=== PATIENT | male | born 2000 | race Caucasian/White ===

== ENCOUNTER 2022-10-31 09:20 | Outpatient (AMB) | payer BC, SELFPAY ==
[2022-10-31 09:25] VITALS: BP 126/78; PULSE 97; RESP 20; TEMP 37.1; O2SAT 99; BMI 24.9
--- NOTE | 2022-10-31 09:25 | MHC.PC.OV ---
Vital Signs 10/31/22 09:25 Height 5 ft 7 in Weight 159 lb BMI 24.9 BP 126/78 Blood Pressure Location Lt brachial Position Sitting Respiration 20 Pulse 97 Pulse Source Pulse Oximeter Temp 98.7 F Temp Source Oral Pulse Oximetry (%) 99 Oxygen Delivery Method Room Air Intake Visit Reasons: New patient-requesting physical Intake Note: Patient is here as a new patient, would like to discuss fatigue. Allergies hazelnuts, dogs, cats Allergy (Mild, Uncoded 10/31/22 10:07) watery eyes, sneezing Medication List - Last Reconciled 10/31/22 by Patricia Cohen CNP albuterol sulfate 90 mcg/actuation 2 puffs inhalation Q6H PRN budesonide 90 mcg/actuation (Pulmicort Flexhaler) 2 inhalations inhalation BID Dental Screening Did you have a dental visit in the last 12 months?: No Did you have a dental problem in the last 6 months where you did not have access to dental care?: No Was dental information given to patient?: No HPI HPI Comments History of Present Illness Details 22-year-old male presents to [facility] He notes that the last time was seen by his former PCP was 2 years ago. He had routine blood work done a year and half ago He reports past medical history significant for asthma, anxiety and depression. He notes he was followed by therapist for 3 months until he moved from [place] to [place]. He has never been on psychotropic medications. He notes that his asthma is well controlled. He has a positive response to Thoughts that he would better off , all hurting yourself in some way on the PHQ-9 questionnaire. He admits to constant suicide ideation. He notes that sometimes while driving, I look for spots in the [place] where i can crash my car. He states the last time he had those thoughts was 2 weeks ago. He currently denies SI/HI. He is willing to be reconnected with a therapist and start medication treatment. He also reports chronic persistent fatigue for the past 6 years. He admits to exercising. [facility] Medical History (Updated 10/31/22 @ 13:27 by Patricia Cohen CNP) Asthma Broken arm High blood pressure Right arm fracture Family History (Updated 10/31/22 @ 09:35 by Sol Mcguire 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 1. Little interest or pleasure in doing things: more than half the days 2. Feeling down, depressed, or hopeless: more than half the days 3. Trouble falling or staying asleep, or sleeping too much: more than half the days 4. Feeling tired or having little energy: more than half the days 5. Poor appetite or overeating: several days 6. Feeling bad about yourself - or that you are a failure or have let yourself or your family down: nearly every day 7. Trouble concentrating on things, such as reading the newspaper or watching television: several days 8. Moving or speaking so slowly that other people could have noticed. Or the opposite - being so fidgety or restless that you have been moving around a lot more than usual: not at all 9. Thoughts that you would be better off or of hurting yourself in some way: more than half the days Total score: 15 Depression Screening Interpretation: Positive Depression Screening Follow-up: Existing condition, New Medication prescribed and Community Mental Health Worker F/U Source: Developed by Drs. Misael Clark, Radha Maher, Avery Sawant and colleagues, with an educational gloria from [employer]. Thrive Questionnaire I am a: Patient What is your living situation today?: I have a steady place to live Within the past 12 months, did the food you bought not last and you didn't have the money to get more?: Never true Within the past 12 months, did you worry whether your food would run out before you got money to buy more?: Never true Do you have trouble paying for medicines?: No Do you have trouble getting transportation to medical appointments?: No Do you have trouble paying your heating and electricity bill?: No Do you have trouble taking care of your child, family member or friend?: No Do you have trouble with day-to-day activities such as bathing, preparing meals, shopping, managing finances, etc.?: No Are you currently unemployed and looking for a job?: No Are you interested in more education?: No AUDIT C Alcohol Use Questionnaire (AUDIT-C) 1. How often do you have a drink containing alcohol?: Monthly or less 2. How many drinks containing alcohol do you have on a typical day when you are drinking?: 1 or 2 3. How often do you have six or more drinks on one occasion?: Never Total Score: 1 ANNETTA-7 AMB Questionnaire ANNETTA-7 Feeling nervous, anxious, or on edge: 2 = More than half the days Not being able to stop or control worryin = Several days Worrying too much about different things: 3 = Nearly every day Source: Developed by Drs. Misael Clark, Radha Maher, Avery Sawant and colleagues, with an educational gloria from [employer]. ACT Questionnaire In the past 4 weeks, how much of the time did your asthma keep you from getting as much done at work, school or at home?: A little of the time During the past 4 weeks, how often have you had shortness of breath?: Not at all During the past 4 weeks, how often did your asthma symptoms wake you up at night or earlier than usual in the morning?: Not at all During the past 4 weeks, how often have you had to use your rescue inhaler or nebulizer medication?: Once a week or less How would you rate your asthma control during the past 4 weeks?: Well controlled Score: 22 Review of Systems Const Details: Const Denies chills, Denies fatigue, Denies fever(s), Denies headache(s) and Denies weakness ENT Denies dizziness and Denies headache(s) Card Denies chest pain, Denies lightheadedness, Denies dyspnea and Denies other (Palpitations) Resp Denies cough, Denies dyspnea, Denies wheezing and Denies other ( shortness of breath) GI Denies abdominal pain, Denies melena, Denies hematochezia, Denies change in bowel habits, Denies dyspepsia and Denies nausea Denies hematuria and Denies dysuria Musc Denies abnormal gait, Denies myalgias, Denies arthralgias, Denies numbness and Denies tingling Skin/Breast Denies rash, Denies unusual bruising and Denies wounds Neuro Denies abnormal gait, Denies dizziness, Denies headache(s), Denies memory loss, Denies numbness, Denies Sensory deficit (Neuro), Denies tingling and Denies weakness Psych Reports anxiety and Reports depression Endo Denies cold intolerance, Reports fatigue, Denies heat intolerance, Denies polydipsia and Denies polyuria Aller/Immun Denies wheezing Physical exam (Primary Care) BMI result Body Mass Index 24.9 Tobacco/Smoking Status: Tobacco use Status Patient Tobacco Use Status Never used Tobacco 10/31/22 10:18 e-Cigarette/Vaping Use Never Used 10/31/22 10:18 PHQ-9: PHQ-9 Score PHQ-9: Total score 15 10/31/22 10:37 Depression Screening Interpretation: Positive Depression Screening Follow-up: Existing condition, New Medication prescribed and Community Mental Health Worker F/U Const Other: Const General: well developed; No acute distress Nutritional Appearance: well nourished Orientation/consciousness: patient oriented x3 HEENT Head: Yes normocephalic and Yes atraumatic Eyes General: appearance normal, both eyes and all related structures Pupils: Equal, round and reactive pupils present EOM: EOMs intact bilaterally Resp Effort & Inspection: normal respiratory effort Auscultation: clear to auscultation bilaterally Cardio Rate: regular rate Rhythm: regular rhythm Heart sounds: S1 normal heart sound present, S2 normal heart sound present, no gallops, no murmurs and no rubs Bruits: no abdominal aortic bruits and no carotid bruits Neuro General: patient oriented x3 and gait normal, no focal neuro deficit Cranial nerves: Yes Equal, round and reactive pupils present Psych Appearance: grossly normal Affect: normal affect Attitude: cooperative Thought process: Normal thought process present Assessment and Plan Assessment & Plan (1) Anxiety and depression: Code(s): F41.9 - Anxiety disorder, unspecified; F32.A - Depression, unspecified Plan: He has a positive response to Thoughts that he would better off , all hurting yourself in some way on the PHQ-9 questionnaire. He admits to constant suicide ideation. He notes that sometimes while driving, I look for spots in the [place] where i can crash my car. He states the last time he had those thoughts was 2 weeks ago. He currently denies SI/HI. He is willing to be reconnected with a therapist and start medication treatment. PHQ-9 and ANNETTA-7 scores revealed moderately severe depression and moderate anxiety respectively He met with the community navigator will involved crisis He was evaluated by crisis who cleared him to go home Sertraline ordered. Take as prescribed Routine exercise encouraged Follow-up in 2 weeks or return sooner with worsening or new symptoms Verbalized understanding and agreed with treatment plan. (2) Fatigue: Code(s): R53.83 - Other fatigue Plan: He also reports chronic persistent fatigue for the past 6 years Likely due to chronic depression, although possible anemia or thyroid disease. May also be vitamin deficiency Lab orders to rule out organic cause Will review lab results and make changes to care plan if warranted Routine exercise encouraged Follow-up with worsening or new symptoms Verbalized understanding and agreed with treatment plan. (3) Asthma: Code(s): J45.909 - Unspecified asthma, uncomplicated Plan: Reports history of asthma Symptoms are well controlled; ACT score is 22 which indicates well controlled asthma Pulmicort and albuterol inhalers as prescribed Follow-up with symptoms or concerns Verbalized understanding and agreed with treatment plan. (4) Laboratory tests ordered as part of a complete physical exam (CPE): Code(s): Z00.00 - Encounter for general adult medical examination without abnormal findings Plan: Fasting labs ordered as part of a complete physical exam. Advised to fast for at least 10 hours before getting labs drawn. May drink water Verbalized understanding and agreed with treatment plan. Orders: Orders Comprehensive [place]. Panel Fast Today F32.A - Depression, unspecified, F41.9 - Anxiety disorder, unspecified, R53.83 - Other fatigue, Z00.00 - Encounter for general adult medical examination without abnormal findings Lipid Panel Today F32.A - Depression, unspecified, F41.9 - Anxiety disorder, unspecified, R53.83 - Other fatigue, Z00.00 - Encounter for general adult medical examination without abnormal findings Complete Blood Count Auto Diff Today F32.A - Depression, unspecified, F41.9 - Anxiety disorder, unspecified, R53.83 - Other fatigue, Z00.00 - Encounter for general adult medical examination without abnormal findings TSH reflex Free T4 Today F32.A - Depression, unspecified, F41.9 - Anxiety disorder, unspecified, R53.83 - Other fatigue, Z00.00 - Encounter for general adult medical examination without abnormal findings Vitamin D 25-OH Total Today F32.A - Depression, unspecified, F41.9 - Anxiety disorder, unspecified, R53.83 - Other fatigue, Z00.00 - Encounter for general adult medical examination without abnormal findings UA CC w/rflx Micro + Cult Today F32.A - Depression, unspecified, F41.9 - Anxiety disorder, unspecified, R53.83 - Other fatigue, Z00.00 - Encounter for general adult medical examination without abnormal findings Medications: New sertraline 50 mg PO DAILY 30 days 30 tabs 3RF Coding Level of Care Code New Pt Level 3 (59239) Diagnoses Anxiety and depression F41.9; F32.A Fatigue R53.83 Asthma J45.909 Laboratory tests ordered as part of a complete physical exam (CPE) Z00.00 Time Spent (min) 40
== END 2022-10-31 13:14 | disposition home or self-care (01) ==
LOC: HO.HMGFM 09:21
PROVIDERS: PCP Nurse Practitioner Family; Visit Provider Nurse Practitioner Family
DX: F41.9 Anxiety disorder, unspecified (principal); F32.A Depression, unspecified; R53.83 Other fatigue; J45.909 Unspecified asthma, uncomplicated; Z00.00 Encounter for general adult medical examination without abnormal findings
CPT/HCPCS: 99203

== ENCOUNTER 2022-11-15 08:42 | Outpatient (AMB) | payer BC, SELFPAY ==
[2022-11-15 08:52] VITALS: BP 130/84; PULSE 81; RESP 12; TEMP 36.7; O2SAT 99; BMI 26.8
--- NOTE | 2022-11-15 08:52 | MHC.PC.OV ---
Vital Signs 11/15/22 08:52 Height 5 ft 7 in Weight 171 lb 6 oz BMI 26.8 BP 130/84 Blood Pressure Location Rt brachial Position Sitting Respiration 12 Pulse 81 Pulse Source Pulse Oximeter Temp 98.1 F Temp Source Temporal Artery Scan Pulse Oximetry (%) 99 Oxygen Delivery Method Room Air Intake Visit Reasons: 2 wks anxiety, depression Intake Note: Patient will get labs done after this visit. Will be calling pharmacy to see of they receivced the script sent over on 10/31/22 for Sertraline 50 MG. [employer] Required: No Accompanied by: Self / Same As Patient Allergies hazelnuts, dogs, cats Allergy (Mild, Uncoded 11/15/22 09:03) Sneezing Medication List - Last Reconciled 11/15/22 by Patricia Cohen CNP albuterol sulfate 90 mcg/actuation 2 puffs inhalation Q6H PRN budesonide 90 mcg/actuation (Pulmicort Flexhaler) 2 inhalations inhalation BID sertraline 50 mg PO DAILY 30 days Tobacco use date assessed: 11/15/22 Dental Screening Dental Screen Date: 11/15/22 Did you have a dental visit in the last 12 months?: No Did you have a dental problem in the last 6 months where you did not have access to dental care?: Yes Was dental information given to patient?: Patient has dentist HPI HPI Comments History of Present Illness Details 22-year-old male presents for anxiety and depression follow-up. He establish care 2 weeks ago. He had a positive response to the PHQ-9 question regarding thoughts that you would be better off or of hurting yourself in some way on the PHQ-9 screening. He was cleared by crisis. He was prescribed sertraline 50 mg daily and provided resources by the community navigation to connect to a therapist. He notes that his symptoms have not improved; they are about the same as last time. He has a positive response to Thoughts? that you would be better?off or of hurting yourself in some way on the PHQ-9 questionnaire. He admits to constant suicide ideation.? He notes that sometimes while driving, I look for spots in the [place] where i can crash my car. He states the last time he had those thoughts was 2 weeks ago.? He currently denies SI/HI, denies plans of committing suicide, and contracts for safety. He notes that he contacted the resources that was offered to him to connect to a therapist and was told there were no openings for new patients. 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 1. Little interest or pleasure in doing things: more than half the days 2. Feeling down, depressed, or hopeless: nearly every day 3. Trouble falling or staying asleep, or sleeping too much: several days 4. Feeling tired or having little energy: nearly every day 5. Poor appetite or overeating: more than half the days 6. Feeling bad about yourself - or that you are a failure or have let yourself or your family down: nearly every day 7. Trouble concentrating on things, such as reading the newspaper or watching television: not at all 8. Moving or speaking so slowly that other people could have noticed. Or the opposite - being so fidgety or restless that you have been moving around a lot more than usual: not at all 9. Thoughts that you would be better off or of hurting yourself in some way: more than half the days Total score: 16 Depression Screening Interpretation: Positive Depression Screening Follow-up: Existing condition, In treatment and Community Mental Health Worker F/U Source: Developed by Drs. Miseal Clark, Radha Maher, Avery Sawant and colleagues, with an educational gloria from [employer]. ANNETTA-7 AMB Questionnaire ANNETTA-7 Date ANNETTA - 7 assessed: 11/15/22 Feeling nervous, anxious, or on edge: 2 = More than half the days Not being able to stop or control worryin = Several days Worrying too much about different things: 1 = Several days Trouble relaxin = More than half the days Being so restless that it is hard to sit still: 0 = Not at all Becoming easily annoyed or irritable: 2 = More than half the days Feeling afraid as if something awful might happen: 1 = Several days Total ANNETTA-7 score (0-4 normal; 5-9 mild; 10-14 moderate; 15-21 severe): 9 Source: Developed by Drs. Misael Clark, Radha Maher, Avery Sawant and colleagues, with an educational gloria from [employer]. Review of Systems Const Details: Const Denies chills, Denies fatigue, Denies fever(s), Denies headache(s) and Denies weakness ENT Denies dizziness and Denies headache(s) Card Denies chest pain, Denies lightheadedness, Denies dyspnea and Denies other (Palpitations) Resp Denies cough, Denies dyspnea, Denies wheezing and Denies other ( shortness of breath) GI Denies abdominal pain, Denies melena, Denies hematochezia, Denies change in bowel habits, Denies dyspepsia and Denies nausea Denies hematuria and Denies dysuria Musc Denies abnormal gait, Denies myalgias, Denies arthralgias, Denies numbness and Denies tingling Skin/Breast Denies rash, Denies unusual bruising and Denies wounds Neuro Denies abnormal gait, Denies dizziness, Denies headache(s), Denies memory loss, Denies numbness, Denies Sensory deficit (Neuro), Denies tingling and Denies weakness Psych Reports anxiety and Reports depression, Denies memory loss Endo Denies fatigue Aller/Immun Denies wheezing Physical exam (Primary Care) Vital Signs: Last Vital Signs Temp 98.1 F 11/15/22 08:52 Pulse 81 11/15/22 08:52 Resp 12 11/15/22 08:52 BP 130/84 11/15/22 08:52 Pulse Ox 99 11/15/22 08:52 Oxygen Delivery Method Room Air 11/15/22 08:52 BMI result Body Mass Index 26.8 Tobacco/Smoking Status: Tobacco use Status Tobacco use date assessed 11/15/22 11/15/22 09:03 Patient Tobacco Use Status Never used Tobacco 11/15/22 08:57 e-Cigarette/Vaping Use Never Used 11/15/22 08:57 PHQ-9: PHQ-9 Score PHQ-9: Total score 16 11/15/22 09:07 Depression Screening Interpretation: Positive Depression Screening Follow-up: Existing condition, In treatment and Community Mental Health Worker F/U Const Other: General: no acute distress and well developed Nutritional Appearance: well nourished Orientation/consciousness: patient oriented x3 HENMT Head: Yes normocephalic and Yes atraumatic Eyes General: appearance normal, both eyes and all related structures Pupils: Equal, round and reactive pupils present EOM: EOMs intact bilaterally Resp Effort & Inspection: normal respiratory effort Auscultation: clear to auscultation bilaterally Cardio Rate: regular rate Rhythm: regular rhythm Heart sounds: S1 normal heart sound present, S2 normal heart sound present, no gallops, no murmurs and no rubs GI Palpation (GI): No Abdominal aortic bruit present, Soft to palpation, nontender, No hepatosplenomegaly present and No Rebound tenderness present Auscultation: normal bowel sounds General: Yes no CVA tenderness Back/Spine/Pelvis Back: no CVA tenderness Cervical Spine: cervical ROM normal and No Cervical spine tenderness Thoracic/Lumbar Spine: thoraco-lumbar ROM normal, No pain with thoraco-lumbar ROM, No thoracic spinal tenderness and No lumbar spinal tenderness Extrem General: Yes normal to inspection, No edema and No calf tenderness Skin General: warm and dry. Normal skin color. Normal skin turgor Lesions: no lesions Rashes: no rashes Trauma: no lacerations or abrasions Wounds: no wounds Nails: normal Neuro General: patient oriented x3, gait normal and no focal neuro deficit Cranial nerves: Yes Equal, round and reactive pupils present Cognition (Neuro): normal cognition Gait exam (Neuro): Normal gait present Sensory Exam: No Sensory deficit (Neuro) Psych Appearance: grossly normal Affect: normal affect Attitude: cooperative Thought process: Normal thought process present Assessment and Plan Assessment & Plan (1) Anxiety and depression: Code(s): F41.9 - Anxiety disorder, unspecified; F32.A - Depression, unspecified Plan: PHQ-9 and ANNETTA-7 scores revealed moderately severe depression and mild anxiety respectively Encouraged to sisal picker sertraline from the pharmacy intake as prescribed Routine exercise encouraged He met with the community navigator who will try to facilitate connecting to a therapist Follow-up in 2 weeks or return sooner with new or worsening symptoms Verbalized understanding and agreed with treatment plan. Coding Level of Care Code Est Pt Level 3 (40718) Diagnoses Anxiety and depression F41.9; F32.A Time Spent (min) 25
== END 2022-11-15 09:28 | disposition home or self-care (01) ==
PROVIDERS: PCP Nurse Practitioner Family; Visit Provider Nurse Practitioner Family
DX: F41.9 Anxiety disorder, unspecified (principal); F32.A Depression, unspecified
CPT/HCPCS: 99213

== ENCOUNTER 2022-11-15 09:29 | Outpatient (REF) | payer BC, SELFPAY ==
[2022-11-15 11:44] LABS: Appearance Urine Clear; Color Urine Straw; Glucose Urine UA Negative (Negative); Leukocyte Esterase Urine Negative (Negative); Nitrite Urine Negative (Negative); Specific Gravity - Urine 1.025 (1.005-1.025); Urine Blood Negative (Negative); Urine Ketones Negative (Negative); Urine Protein Negative (Neg-Trace)
[2022-11-15 11:50] LABS: MANUAL DIFF FLAG NO
[2022-11-15 11:59] LABS: Basophils Absolute Auto 0.1 X10*3/uL (0.0-0.2); Basophils Percent Auto 1.1 % (0-2); Eosinophils Absolute Auto 0.2 X10*3/uL (0.0-0.4); Eosinophils Percent Auto 3.3 % (0-4); Hematocrit 45.5 % (42.0-52.0); Hemoglobin 15.5 g/dl (14.0-18.0); Imm Gran Abs Auto 0.02 X10*3/uL (0.00-0.03); Imm Gran Pct Auto 0.4 % (0.0-0.4); Lymphocytes Absolute Auto 2.1 X10*3/uL (1.2-4.9); Lymphocytes Percent Auto 38.9 % (20-40); Mean Corpuscular HGB Conc 34.1 g/dl (31.0-36.0); Mean Corpuscular Hemoglobin 30.6 pg (27.0-33.0); Mean Corpuscular Volume 89.9 fL (80.0-98.0); Mean Platelet Volume 10.5 fL (9.4-12.4); Monocytes Absolute Auto 0.3 X10*3/uL (0.1-1.2); Monocytes Percent Auto 5.8 % (2-11); Neutrophils Absolute Auto 2.8 x10*3/uL (2.0-8.3); Neutrophils Percent Auto 50.5 % (45-73); Platelet Count 237 X10*3/uL (160-400); Red Blood Count 5.06 X10*6/uL (4.60-5.80); White Blood Count 5.5 X10*3/uL (4.8-10.8)
[2022-11-15 13:24] LABS: Alanine Aminotransferase 20 U/L (0-40); Albumin Level 4.5 g/dL (3.5-5.0); Alkaline Phosphatase 62 U/L (39-117); Anion Gap 10 (12-20); Aspartate Amino Transferase 18 U/L (5-37); Bilirubin Total 0.4 mg/dL (0.0-1.0); Blood Urea Nitrogen 13 mg/dL (9-16); Calcium 9.6 mg/dL (8.4-10.2); Carbon Dioxide 27 mmol/L (22-29); Chloride 105 mmol/L (96-108); Cholesterol 175 mg/dL; Estimated Glomerular Filt Rate > 60; Glucose Fasting 89 mg/dL (60-99); HDL Cholesterol 46 mg/dL; LDL Cholesterol Calculated 118 mg/dl; Potassium 3.8 mmol/L (3.3-5.1); Sodium 138 mmol/L (135-145); TSH reflex Free T4 1.57 uIU/mL (0.32-4.0); Total Protein 7.6 g/dL (6.5-8.0); Triglycerides 55 mg/dL; Vitamin D 25-OH Total 29.2 ng/mL (>30)
== END 2022-11-15 09:30 | disposition home or self-care (01) ==
LOC: HO.WFDLDS 09:29
PROVIDERS: Visit Provider Nurse Practitioner Family
DX: Z00.00 Encounter for general adult medical examination without abnormal findings (principal); F32.A Depression, unspecified; F41.9 Anxiety disorder, unspecified; R53.82 Chronic fatigue, unspecified
CPT/HCPCS: 36415; 80053; 80061; 81003; 82306; 84443; 85025

== ENCOUNTER 2023-01-27 12:03 | Outpatient (AMB) | payer BC, SELFPAY ==
[2023-01-27 12:25] VITALS: BP 122/80; PULSE 85; RESP 16; TEMP 37.3; O2SAT 98; BMI 26.8
--- NOTE | 2023-01-27 12:25 | MHC.PC.OV ---
Vital Signs 01/27/23 12:25 Height 5 ft 7 in Weight 171 lb BMI 26.8 BP 122/80 Blood Pressure Location Lt brachial Position Sitting Respiration 16 Pulse 85 Pulse Source Pulse Oximeter Temp 99.1 F Temp Source Oral Pulse Oximetry (%) 98 Intake Visit Reasons: 2 wks anxiety, depression Intake Note: Patient is following up on his 2 weeks anxiety, and depression. Allergies hazelnuts, dogs, cats Allergy (Mild, Uncoded 01/27/23 12:33) Sneezing Medication List - Last Reconciled 01/27/23 by Patricia Cohen CNP albuterol sulfate 90 mcg/actuation 2 puffs inhalation Q6H PRN budesonide 90 mcg/actuation (Pulmicort Flexhaler) 2 inhalations inhalation BID sertraline 50 mg PO DAILY 30 days Tobacco use date assessed: 01/27/23 HPI HPI Comments History of Present Illness Details 22-year-old male presents for anxiety and depression follow-up He was last evaluated in the office on 11/15/2022. He reported worsening anxiety and depression symptoms. Sertraline was prescribed, He states he took sertraline as prescribed until 3 weeks ago when he had no refills left. States his anxiety and depressed her symptoms were significantly improved on the medication. He did not have thoughts that he would be better off or hurting himself in some way. He states that he was unable to follow-up as recommended during his last visit because he was not granted time off work. He came in today during his lunch break. He states that he has been exercising by running with his dog every day. He has a positive response to the PHQ-9 question regarding Thoughts that you would be better off or of hurting yourself in some way. He has had numerous positive response to this question on previous visits. He denies suicide or homicidal ideation. He denies plans of committing suicide. He contracts for safety. ? 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 1. Little interest or pleasure in doing things: more than half the days 2. Feeling down, depressed, or hopeless: nearly every day 3. Trouble falling or staying asleep, or sleeping too much: several days 4. Feeling tired or having little energy: nearly every day 5. Poor appetite or overeating: more than half the days 6. Feeling bad about yourself - or that you are a failure or have let yourself or your family down: nearly every day 7. Trouble concentrating on things, such as reading the newspaper or watching television: not at all 8. Moving or speaking so slowly that other people could have noticed. Or the opposite - being so fidgety or restless that you have been moving around a lot more than usual: not at all 9. Thoughts that you would be better off or of hurting yourself in some way: several days Total score: 15 Depression Screening Interpretation: Positive Depression Screening Follow-up: Existing condition and In treatment Depression Screening Done: Yes Source: Developed by Drs. Misael Clark, Radha Maher, Avery Sawant and colleagues, with an educational gloria from [employer]. ANNETTA-7 AMB Questionnaire ANNETTA-7 Date ANNETTA - 7 assessed: 01/27/23 Feeling nervous, anxious, or on edge: 1 = Several days Not being able to stop or control worryin = More than half the days Worrying too much about different things: 2 = More than half the days Trouble relaxin = Several days Being so restless that it is hard to sit still: 1 = Several days Becoming easily annoyed or irritable: 2 = More than half the days Feeling afraid as if something awful might happen: 0 = Not at all Total ANNETTA-7 score (0-4 normal; 5-9 mild; 10-14 moderate; 15-21 severe): 9 Source: Developed by Drs. Misael Clark, Radha Maher, Avery Sawant and colleagues, with an educational gloria from [employer]. Review of Systems Const Details: Const Denies chills, Denies fatigue, Denies fever(s), Denies headache(s) and Denies weakness ENT Denies dizziness and Denies headache(s) Card Denies chest pain, Denies lightheadedness, Denies dyspnea and Denies other (Palpitations) Resp Denies cough, Denies dyspnea, Denies wheezing and Denies other ( shortness of breath) GI Denies abdominal pain, Denies melena, Denies hematochezia, Denies change in bowel habits, Denies dyspepsia and Denies nausea Denies hematuria and Denies dysuria Musc Denies abnormal gait, Denies myalgias, Denies arthralgias, Denies numbness and Denies tingling Skin/Breast Denies rash, Denies unusual bruising and Denies wounds Neuro Denies abnormal gait, Denies dizziness, Denies headache(s), Denies memory loss, Denies numbness, Denies Sensory deficit (Neuro), Denies tingling and Denies weakness Psych Reports anxiety, Reports depression, Denies memory loss Endo Denies cold intolerance, Denies fatigue, Denies heat intolerance, Denies polydipsia and Denies polyuria Aller/Immun Denies wheezing Physical exam (Primary Care) BMI result Body Mass Index 26.8 Tobacco/Smoking Status: Tobacco use Status Tobacco use date assessed 01/27/23 01/27/23 12:27 Patient Tobacco Use Status Never used Tobacco 01/27/23 12:27 e-Cigarette/Vaping Use Never Used 01/27/23 12:27 Depression Screening Interpretation: Positive Depression Screening Follow-up: Existing condition and In treatment Const Other: General: no acute distress and well developed Nutritional Appearance: well nourished Orientation/consciousness: patient oriented x3 HENMT Head: Yes normocephalic and Yes atraumatic Eyes General: appearance normal, both eyes and all related structures Pupils: Equal, round and reactive pupils present EOM: EOMs intact bilaterally Resp Effort & Inspection: normal respiratory effort Auscultation: clear to auscultation bilaterally Cardio Rate: regular rate Rhythm: regular rhythm Heart sounds: S1 normal heart sound present, S2 normal heart sound present, no gallops, no murmurs and no rubs GI Palpation (GI): No Abdominal aortic bruit present, Soft to palpation, nontender, No hepatosplenomegaly present and No Rebound tenderness present Auscultation: normal bowel sounds General: Yes no CVA tenderness Back/Spine/Pelvis Back: no CVA tenderness Cervical Spine: cervical ROM normal and No Cervical spine tenderness Thoracic/Lumbar Spine: thoraco-lumbar ROM normal, No pain with thoraco-lumbar ROM, No thoracic spinal tenderness and No lumbar spinal tenderness Extrem General: Yes normal to inspection, No edema and No calf tenderness Skin General: warm and dry. Normal skin color. Normal skin turgor Lesions: no lesions Rashes: no rashes Trauma: no lacerations or abrasions Wounds: no wounds Nails: normal Neuro General: patient oriented x3, gait normal and no focal neuro deficit Cranial nerves: Yes Equal, round and reactive pupils present Cognition (Neuro): normal cognition Gait exam (Neuro): Normal gait present Sensory Exam: No Sensory deficit (Neuro) Psych Appearance: grossly normal Affect: normal affect Attitude: cooperative Thought process: Normal thought process present Assessment and Plan Assessment & Plan (1) Anxiety and depression: Code(s): F41.9 - Anxiety disorder, unspecified; F32.A - Depression, unspecified Plan: PHQ-9 and ANNETTA-7 scores revealed moderately severe depression and mild anxiety respectively Patient informed that he had active refill on sertraline Sertraline refilled. Advised to take as prescribed Routine exercise encouraged Follow-up in 1 month. May schedule appointment during his work break Return sooner with worsening or new symptoms Verbalized understanding and agreed with treatment plan. Medications: Refilled sertraline 50 mg PO DAILY 30 tabs 3RF 30 days Coding Level of Care Code Est Pt Level 3 (65477) Diagnoses Anxiety and depression F41.9; F32.A
== END 2023-01-27 12:53 | disposition home or self-care (01) ==
PROVIDERS: PCP Nurse Practitioner Family; Visit Provider Nurse Practitioner Family
DX: F41.9 Anxiety disorder, unspecified (principal); F32.A Depression, unspecified
CPT/HCPCS: 99213

== ENCOUNTER 2023-10-02 17:20 | Outpatient (AMB) | payer BC, SELFPAY ==
--- NOTE | 2023-10-02 17:24 | A.OFFPC_ITS ---
Vital Signs 10/02/23 17:33 Height 5 ft 7 in Weight 194 lb 2 oz BMI 30.4 BP 128/68 Blood Pressure Location Rt brachial Position Sitting Respiration 16 Pulse 88 Pulse Source Pulse Oximeter Temp 98.2 F Temp Source Oral Pulse Oximetry (%) 96 Oxygen Delivery Method Room Air Intake Visit Reasons: f/u meds Intake Note: Follow up Allergies hazelnuts, dogs, cats Allergy (Mild, Uncoded 10/02/23 17:35) Sneezing Medication List - Last Reconciled 10/02/23 by Patricia Cohen CNP albuterol sulfate 90 mcg/actuation 2 puffs inhalation Q6H PRN budesonide 90 mcg/actuation (Pulmicort Flexhaler) 2 inhalations inhalation BID sertraline 50 mg PO DAILY 30 days Tobacco use date assessed: 10/02/23 Dental Screening Dental Screen Date: 11/15/22 HPI HPI Comments History of Present Illness Details 23-year-old male presents for anxiety an d depression follow-up His last office visit was in January 2023. He was advised to follow-up in 1 month for anxiety and depression He admits to taking sertraline as prescribed without adverse reactions He reports control anxiety and depression symptoms on current treatment regimen He admits to routine physical exercise He offers no complaints and denies acute symptoms at this time [facility] Medical History Asthma Broken arm High blood pressure Right arm fracture Surgical History No pertinent past surgical history Family History Father High blood pressure Substance abuse Maternal Grandmother Mental health disorder Social History Housing: Apartment Patient Tobacco Use Status: Never used Tobacco e-Cigarette/Vaping Use: Never Used service: No Current occupational status: employed 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 1. Little interest or pleasure in doing things: several days 2. Feeling down, depressed, or hopeless: several days 3. Trouble falling or staying asleep, or sleeping too much: not at all 4. Feeling tired or having little energy: several days 5. Poor appetite or overeating: not at all 6. Feeling bad about yourself - or that you are a failure or have let yourself or your family down: not at all 7. Trouble concentrating on things, such as reading the newspaper or watching television: not at all 8. Moving or speaking so slowly that other people could have noticed. Or the opposite - being so fidgety or restless that you have been moving around a lot more than usual: not at all 9. Thoughts that you would be better off or of hurting yourself in some way: not at all Total score: 3 Depression Screening Interpretation: Negative Depression Screening Done: Yes 35506 - PHQ-9 Billing: Yes Source: Developed by Drs. Misael Clark, Radha Maher, Avery Sawant and colleagues, with an educational gloria from [employer]. ANNETTA-7 AMB Questionnaire ANNETTA-7 Date ANNETTA - 7 assessed: 10/02/23 Feeling nervous, anxious, or on edge: 1 = Several days Not being able to stop or control worryin = Not at all Worrying too much about different things: 0 = Not at all Trouble relaxin = Several days Being so restless that it is hard to sit still: 1 = Several days Becoming easily annoyed or irritable: 1 = Several days Feeling afraid as if something awful might happen: 0 = Not at all Total ANNETTA-7 score (0-4 normal; 5-9 mild; 10-14 moderate; 15-21 severe): 4 Source: Developed by Drs. Misael Clark, Radha Maher, Avery Sawant and colleagues, with an educational gloria from [employer]. ANNETTA-7 Assessment Billing ANNETTA-7 Assessment Tool: ANNETTA-7 Assessment 79087 ACT Questionnaire In the past 4 weeks, how much of the time did your asthma keep you from getting as much done at work, school or at home?: None of the time During the past 4 weeks, how often have you had shortness of breath?: Not at all During the past 4 weeks, how often did your asthma symptoms wake you up at night or earlier than usual in the morning?: Not at all During the past 4 weeks, how often have you had to use your rescue inhaler or nebulizer medication?: Not at all (Ran out of both inhaler) How would you rate your asthma control during the past 4 weeks?: Completely controlled ACT Interpretation: Negative Score: 25 Review of Systems Const Details: Const Denies chills, Denies fatigue, Denies fever(s), Denies headache(s) and Denies weakness ENT Denies dizziness and Denies headache(s) Card Denies chest pain, Denies lightheadedness, Denies dyspnea and Denies other (Palpitations) Resp Denies cough, Denies dyspnea, Denies wheezing and Denies other ( shortness of breath) GI Denies abdominal pain, Denies melena, Denies hematochezia, Denies change in bowel habits, Denies dyspepsia and Denies nausea Denies hematuria and Denies dysuria Musc Denies abnormal gait, Denies myalgias, Denies arthralgias, Denies numbness and Denies tingling Skin/Breast Denies rash, Denies unusual bruising and Denies wounds Neuro Denies abnormal gait, Denies dizziness, Denies headache(s), Denies memory loss, Denies numbness, Denies Sensory deficit (Neuro), Denies tingling and Denies weakness Psych Denies anxiety, Denies depression, Denies memory loss Endo Denies cold intolerance, Denies fatigue, Denies heat intolerance, Denies polydipsia and Denies polyuria Aller/Immun Denies wheezing Physical exam (Primary Care) Vital Signs: Last Vital Signs Temp 98.2 F 10/02/23 17:33 Pulse 88 10/02/23 17:33 Resp 16 10/02/23 17:33 BP 128/68 10/02/23 17:33 Pulse Ox 96 10/02/23 17:33 Oxygen Delivery Method Room Air 10/02/23 17:33 BMI result Body Mass Index 30.4 Tobacco/Smoking Status: Tobacco use Status Tobacco use date assessed 10/02/23 10/02/23 17:30 Patient Tobacco Use Status Never used Tobacco 10/02/23 17:25 e-Cigarette/Vaping Use Never Used 10/02/23 17:25 PHQ-9: PHQ-9 Score PHQ-9: Total score 3 10/02/23 17:30 Depression Screening Interpretation: Negative Const Other: General: no acute distress and well developed Nutritional Appearance: well nourished Orientation/consciousness: patient oriented x3 HENMT Head: Yes normocephalic and Yes atraumatic Eyes General: appearance normal, both eyes and all related structures Pupils: Equal, round and reactive pupils present EOM: EOMs intact bilaterally Resp Effort & Inspection: normal respiratory effort Auscultation: clear to auscultation bilaterally Cardio Rate: regular rate Rhythm: regular rhythm Heart sounds: S1 normal heart sound present, S2 normal heart sound present, no gallops, no murmurs and no rubs GI Palpation (GI): No Abdominal aortic bruit present, Soft to palpation, nontender, No hepatosplenomegaly present and No Rebound tenderness present Auscultation: normal bowel sounds General: Yes no CVA tenderness Back/Spine/Pelvis Back: no CVA tenderness Cervical Spine: cervical ROM normal and No Cervical spine tenderness Thoracic/Lumbar Spine: thoraco-lumbar ROM normal, No pain with thoraco-lumbar ROM, No thoracic spinal tenderness and No lumbar spinal tenderness Extrem General: Yes normal to inspection, No edema and No calf tenderness Skin General: warm and dry. Normal skin color. Normal skin turgor Neuro General: patient oriented x3, gait normal and no focal neuro deficit Cranial nerves: Yes Equal, round and reactive pupils present Cognition (Neuro): normal cognition Gait exam (Neuro): Normal gait present Sensory Exam: No Sensory deficit (Neuro) Psych Appearance: grossly normal Affect: normal affect Attitude: cooperative Thought process: Normal thought process present Assessment and Plan Assessment & Plan (1) Anxiety and depression: Code(s): F41.9 - Anxiety disorder, unspecified; F32.A - Depression, unspecified Plan: Reports controlled anxiety and depressive symptoms PHQ-9 and ANNETTA-7 scores are normal Continue to take sertraline as prescribed Routine exercise encouraged Follow-up in 1 month for an extended physical exam or sooner with symptoms or concerns Verbalized understanding and agreed with treatment plan (2) Laboratory tests ordered as part of a complete physical exam (CPE): Code(s): Z00.00 - Encounter for general adult medical examination without abnormal findings Plan: Fasting labs ordered in preparation of a complete physical exam. Advised to fast for at least 10 hours before getting labs drawn. May drink water Verbalized understanding and agreed with treatment plan. Orders: Orders TSH reflex Free T4 Today Z00.00 - Encounter for general adult medical examination without abnormal findings Complete Blood Count Auto Diff Today Z00.00 - Encounter for general adult medical examination without abnormal findings Comprehensive [place]. Panel Fast Today Z00.00 - Encounter for general adult medical examination without abnormal findings Lipid Panel Today Z00.00 - Encounter for general adult medical examination without abnormal findings UA CC w/rflx Micro + Cult Today Z00.00 - Encounter for general adult medical examination without abnormal findings Medications: Refilled sertraline 50 mg PO DAILY 30 days 30 tabs 3RF Coding Level of Care Code Est Pt Level 3 (69149) Diagnoses Anxiety and depression F41.9; F32.A Laboratory tests ordered as part of a complete physical exam (CPE) Z00.00 Additional Codes ANNETTA-7 Assessment Billing - ANNETTA-7 Assessment Tool: ANNETTA-7 Assessment [id number] ([id number])
[2023-10-02 17:33] VITALS: BP 128/68; PULSE 88; RESP 16; TEMP 36.8; O2SAT 96; BMI 30.4
== END 2023-10-02 17:41 | disposition home or self-care (01) ==
PROVIDERS: PCP Nurse Practitioner Family; Visit Provider Nurse Practitioner Family
DX: F41.9 Anxiety disorder, unspecified (principal); F32.A Depression, unspecified
CPT/HCPCS: 99213

== ENCOUNTER 2024-02-22 10:20 | Outpatient (AMB) | payer BC, SELFPAY ==
--- NOTE | 2024-02-22 10:26 | A.OFFPC_ITS ---
Vital Signs 02/22/24 10:31 Height 5 ft 7 in Weight 194 lb 2 oz BMI 30.4 BP 132/88 Blood Pressure Location Lt brachial Position Sitting Respiration 16 Pulse 85 Pulse Source Pulse Oximeter Temp 98.0 F Temp Source Oral Pulse Oximetry (%) 97 Oxygen Delivery Method Room Air Intake Visit Reasons: PE Intake Note: patient here for CPE [employer] Required: No Allergies hazelnuts, dogs, cats Allergy (Mild, Uncoded 02/22/24 10:44) Sneezing Medication List - Last Reconciled 02/22/24 by Patricia Cohen CNP albuterol sulfate 90 mcg/actuation 2 puffs inhalation Q6H PRN budesonide 90 mcg/actuation (Pulmicort Flexhaler) 2 inhalations inhalation BID sertraline 50 mg PO DAILY 30 days Tobacco use date assessed: 10/02/23 Dental Screening Dental Screen Date: 02/22/24 Did you have a dental visit in the last 12 months?: No Did you have a dental problem in the last 6 months where you did not have access to dental care?: No Was dental information given to patient?: Yes HPI HPI Comments History of Present Illness Details 23-year-old male presents for an extende d physical exam He has past medical history significant for asthma, myopia, anxiety, and depression He admits to taking his medications as prescribed without adverse reactions He reports increased depression with he attributes to currently being unemployed. 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 He has had difficulty finding a new job. He notes passive SI which are vague. He is sometimes angry with himself and thinks i should just fucking . He feels useless being unemployed. He is hopeful that his current situation will improve. He lives with his girlfriend of 2 years and she has been supportive. His family, including his parents are also supportive. He denies HI or plans of committing suicide. He has may several phone connect with a therapist but has been unsuccessful. He contracts for safety and notes that he would seek help from his family or the crisis hotline He has not been exercising regularly. His dietary choices have been poor. He generally sleeps well Nonsmoker. Drinks 1-2 beers monthly. No recreational drugs Last eye exam was 2 years ago with [facility] Last tetanus vaccine was over 10 years ago He is up-to-date on the covid and flu vaccines He is sexually active monogamous relationship, and has no concerns for STDs [facility] Medical History Asthma Broken arm High blood pressure Right arm fracture Surgical History No pertinent past surgical history Family History Father High blood pressure Substance abuse Maternal Grandmother Mental health disorder Social History Housing: Apartment Patient Tobacco Use Status: Never used Tobacco e-Cigarette/Vaping Use: Never Used service: No Current occupational status: employed 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 1. Little interest or pleasure in doing things: nearly every day 2. Feeling down, depressed, or hopeless: nearly every day 3. Trouble falling or staying asleep, or sleeping too much: more than half the days 4. Feeling tired or having little energy: nearly every day 5. Poor appetite or overeating: more than half the days 6. Feeling bad about yourself - or that you are a failure or have let yourself or your family down: more than half the days 7. Trouble concentrating on things, such as reading the newspaper or watching television: more than half the days 8. Moving or speaking so slowly that other people could have noticed. Or the opposite - being so fidgety or restless that you have been moving around a lot more than usual: several days 9. Thoughts that you would be better off or of hurting yourself in some way: several days Total score: 19 Depression Screening Interpretation: Positive Depression Screening Follow-up: Existing condition, In treatment, Change in Medication and Community Mental Health Worker F/U Depression Screening Done: Yes 90281 - PHQ-9 Billing: Yes Source: Developed by Drs. Misael Clark, Radha Maher, Avery Sawant and colleagues, with an educational gloria from [employer]. Thrive Questionnaire Date Thrive assessed: 02/22/24 I am a: Patient What is your living situation today?: I have a steady place to live Within the past 12 months, did the food you bought not last and you didn't have the money to get more?: Sometimes True Within the past 12 months, did you worry whether your food would run out before you got money to buy more?: I choose not to answer this question Do you have trouble paying for medicines?: No Do you have trouble getting transportation to medical appointments?: No Do you have trouble paying your heating and electricity bill?: I choose not to answer this question Do you have trouble taking care of your child, family member or friend?: No Do you have trouble with day-to-day activities such as bathing, preparing meals, shopping, managing finances, etc.?: No Are you currently unemployed and looking for a job?: Yes Are you interested in more education?: I choose not to answer this question Please select the resources that you would like help with: Job search/training Currently or been in a relationship where the following occur: Controlled Emotionally THRIVE Score: 2 AUDIT C Alcohol Use Questionnaire (AUDIT-C) 1. How often do you have a drink containing alcohol?: Monthly or less 2. How many drinks containing alcohol do you have on a typical day when you are drinking?: 1 or 2 3. How often do you have six or more drinks on one occasion?: Never Total Score: 1 Score Reviewed/Action Taken: Yes ANNETTA-7 AMB Questionnaire ANNETTA-7 Date ANNETTA - 7 assessed: 02/22/24 Feeling nervous, anxious, or on edge: 1 = Several days Not being able to stop or control worryin = Several days Worrying too much about different things: 1 = Several days Trouble relaxin = Several days Being so restless that it is hard to sit still: 1 = Several days Becoming easily annoyed or irritable: 1 = Several days Feeling afraid as if something awful might happen: 0 = Not at all Total ANNETTA-7 score (0-4 normal; 5-9 mild; 10-14 moderate; 15-21 severe): 6 Source: Developed by Drs. Misael Clark, Radha Maher, Avery Sawant and colleagues, with an educational gloria from [employer]. ANNETTA-7 Assessment Billing ANNETTA-7 Assessment Tool: ANNETTA-7 Assessment 97106 ACT Questionnaire In the past 4 weeks, how much of the time did your asthma keep you from getting as much done at work, school or at home?: None of the time During the past 4 weeks, how often have you had shortness of breath?: 1-2 times a week During the past 4 weeks, how often did your asthma symptoms wake you up at night or earlier than usual in the morning?: Not at all During the past 4 weeks, how often have you had to use your rescue inhaler or nebulizer medication?: Not at all How would you rate your asthma control during the past 4 weeks?: Well controlled ACT Interpretation: Negative Score: 23 Review of Systems Const Details: Denies chills, Denies fatigue, Denies fever(s), Denies headache(s) and Denies weakness HEENT Denies change in vision, Denies dizziness, Denies headache(s), Denies hearing loss, Denies nasal congestion, Denies sinus pain, Denies sinus pressure and Denies sore throat Card Denies chest pain, Denies lightheadedness, Denies dyspnea and Denies other (palpitations) Resp Denies cough, Denies dyspnea and Denies wheezing GI Denies abdominal pain, Denies melena, Denies hematochezia, Denies change in bowel habits, Denies dyspepsia and Denies nausea Denies hematuria and Denies dysuria Musc Denies abnormal gait, Denies myalgias, Denies arthralgias, Denies numbness and Denies tingling Skin/Breast Denies rash, Denies unusual bruising and Denies wounds Neuro Denies abnormal gait, Denies dizziness, Denies headache(s), Denies memory loss, Denies numbness, Denies Sensory deficit (Neuro), Denies tingling and Denies weakness Psych Denies anxiety, Reports depression and Denies memory loss Endo Denies cold intolerance, Denies fatigue, Denies heat intolerance, Denies polydipsia and Denies polyuria Marcio/Lymph Denies easy bleeding and Denies easy bruising Aller/Immun Denies wheezing Physical exam (Primary Care) Vital Signs: Last Vital Signs Temp 98.0 F 02/22/24 10:31 Pulse 85 02/22/24 10:31 Resp 16 02/22/24 10:31 BP 132/88 02/22/24 10:31 Pulse Ox 97 02/22/24 10:31 Oxygen Delivery Method Room Air 02/22/24 10:31 BMI result Body Mass Index 30.4 Tobacco/Smoking Status: Tobacco use Status Tobacco use date assessed 10/02/23 02/22/24 10:31 Patient Tobacco Use Status Never used Tobacco 02/22/24 10:31 e-Cigarette/Vaping Use Never Used 02/22/24 10:31 PHQ-9: PHQ-9 Score PHQ-9: Total score 19 02/22/24 11:02 Depression Screening Interpretation: Positive Depression Screening Follow-up: Existing condition, In treatment, Change in Medication and Community Mental Health Worker F/U Thrive Assessment: Date of Thrive Assessment Date Thrive assessed 02/22/24 02/22/24 10:31 Currently or been in a relationship where the following occur: Controlled Emotionally Const Other: General: no acute distress, well developed, alert and awake Nutritional Appearance: well nourished Orientation/consciousness: patient oriented x3 HENMT Head: Yes normocephalic and Yes atraumatic Ears: hearing grossly normal bilaterally and TM's normal bilaterally General nose exam: Normal external nose present and Normal nares present Mouth: Normal oral and palatal mucosa present and moist mucous membranes Teeth and gingiva: dentition normal Throat: Yes oropharynx normal Eyes Pupils: Equal, round and reactive pupils present and Pupil accommodation reflex normal EOM: EOMs intact bilaterally Neck Neck: Yes normal visual inspection, Yes no lymphadenopathy and Yes trachea midline Thyroid: Thyroid normal Carotids: no bruits Lymphatic: no lymphadenopathy noted Chest Chest palpation & inspection: normal inspection of the chest Resp Effort & Inspection: normal respiratory effort Auscultation: clear to auscultation bilaterally Cardio Rate: regular rate Rhythm: regular rhythm Heart sounds: S1 normal heart sound present, S2 normal heart sound present, no gallops, no murmurs and no rubs Bruits: no abdominal aortic bruits and no carotid bruits GI Palpation (GI): No Abdominal aortic bruit present, Soft to palpation, nontender, No hepatosplenomegaly present and No Rebound tenderness present Auscultation: normal bowel sounds General: Yes no CVA tenderness Back/Spine/Pelvis Back: no CVA tenderness Cervical Spine: cervical ROM normal and No Cervical spine tenderness Thoracic/Lumbar Spine: thoraco-lumbar ROM normal, No pain with thoraco-lumbar ROM, No thoracic spinal tenderness and No lumbar spinal tenderness Skin General: warm and dry. Normal skin color. Normal skin turgor Lesions: no lesions Rashes: no rashes Trauma: no lacerations or abrasions Wounds: no wounds Nails: normal Neuro General: patient oriented x3, gait normal and CN's II-XI intact bilaterally Cranial nerves: Yes Equal, round and reactive pupils present Cognition (Neuro): normal cognition Gait exam (Neuro): Normal gait present Motor exam (neuro): 5/5 motor strength present throughout Sensory Exam: No Sensory deficit (Neuro) Deep tendon reflexes (DTR's): Right patellar reflex intensity grade: 2+ and Left patellar reflex intensity grade: 2+ Extrem General: Yes normal to inspection, No edema and No calf tenderness Psych Appearance: grossly normal Affect: normal affect Attitude: cooperative Thought process: Normal thought process present Immunizations Boostrix Tdap 2.5 Lf unit-8 mcg-5 Lf/0.5 mL intramuscular syringe Performing Provider: Patricia Cohen CNP [place] [facility] Administered by: Samantha Ga RN on 02/22/24 11:16 Dose Route Admin Location Dispensed Lot Number Expiration Date [facility] [place] [employer] 0.5 mL IM Right Deltoid 0.5 mL [id number] 01/19/25 [id number] [employer] VIS Given Date VIS Provided VIS Publication Date 02/22/24 Single Vaccine 20 Eligibility Eligibility Date Funding Source Not [facility] Eligible 02/22/24 Private Coding Level of Care Code Est Pt Level 4 (26759) Est Pt Prev Care 18-39y(91255) Diagnoses Normal physical examination, routine Z00.00 Anxiety and depression F41.9; F32.A Asthma J45.909 Eye exam, routine Z01.00 Myopia H52.10 Vaccine for tetanus toxoid Z23 Additional Codes ANNETTA-7 Assessment Billing - ANNETTA-7 Assessment Tool: ANNETTA-7 Assessment 75643 ([id number]) Asthma Control Questionnaire - ACT Interpretation: Negative ([id number]) Assessment & Plan Assessment & Plan (1) Normal physical examination, routine: Code(s): Z00.00 - Encounter for general adult medical examination without abnormal findings Category: Medical Plan: No significant functional limitation noted Continue current treatment regimen Healthy diet and routine exercise encouraged Encouraged to establish with a dentist for routine dental care Advised to get fasting lab work done 2-3 days before his next visit Follow-up in 2 weeks for anxiety and depression or sooner with worsening or new symptoms Verbalized understanding and agreed with the treatment plan (2) Anxiety and depression: Code(s): F41.9 - Anxiety disorder, unspecified; F32.A - Depression, unspecified Category: Medical Plan: Reports increased depressive symptoms which he attributes to currently being une mployed. He recently quit his job due to dissatisfaction with the culture. He has not been able to connect with a therapist despite several phone call attempts. He notes passive SI with no plan. He denies HI. He contracts for safety PHQ 9 and ANNETTA-7 scores revealed moderately severe depression and mild anxiety respectively Will increase sertraline to 75 mg daily. Advised to take as prescribed. Instructed on the risks, benefits, and potential adverse reactions of the medication He met with the [facility] who will work with him again to connect him to a therapist Routine exercise encouraged Follow-up in 2 weeks or sooner with worsening or new symptoms Verbalized understanding and agreed with the treatment plan (3) Asthma: Code(s): J45.909 - Unspecified asthma, uncomplicated Category: Medical Plan: ACT score is 23, well control asthma Continue current treatment regimen Follow-up as needed Verbalized understanding and agreed with the plan (4) Eye exam, routine: Code(s): Z01.00 - Encounter for examination of eyes and vision without abnormal findings Category: Medical Plan: His last eye exam was 2 years ago. He has history of myopia and wears prescription glasses Referred to Ophthalmology for routine eye exam (5) Myopia: Code(s): H52.10 - Myopia, unspecified eye Category: Medical Plan: Plan as above (6) Vaccine for tetanus toxoid: Code(s): Z23 - Encounter for immunization Category: Medical Plan: His last tetanus vaccine was over 10 years ago Tdap administered today by our nurse Orders: Orders TDaP Immunization Today Z23 - Encounter for immunization Referrals Ophthalmology Referral Z01.00 - Encounter for examination of eyes and vision without abnormal findings Medications: New sertraline Take with sertraline 50 mg daily to equal 75 mg daily 25 mg PO DAILY 30 days 30 tabs 3RF Changed From sertraline 50 mg PO DAILY 30 days 30 tabs 3RF To sertraline Take with sertraline 25 mg daily to equal 75 mg daily 50 mg PO DAILY 30 days 30 tabs 3RF
[2024-02-22 10:31] VITALS: BP 132/88; PULSE 85; RESP 16; TEMP 36.7; O2SAT 97; BMI 30.4
== END 2024-02-22 11:25 | disposition home or self-care (01) ==
LOC: HO.HMCFM 10:21
PROVIDERS: PCP Nurse Practitioner Family; Visit Provider Nurse Practitioner Family
DX: Z00.00 Encounter for general adult medical examination without abnormal findings (principal); F41.9 Anxiety disorder, unspecified; F32.A Depression, unspecified; J45.909 Unspecified asthma, uncomplicated

== ENCOUNTER → 2024-02-22 10:20 | Outpatient (BNVA) | payer BC, SELFPAY | PROVIDERS: PCP Nurse Practitioner Family; Visit Provider Nurse Practitioner Family | DX: Z00.00 Encounter for general adult medical examination without abnormal findings (principal); F41.9 Anxiety disorder, unspecified; F32.A Depression, unspecified; J45.909 Unspecified asthma, uncomplicated; H52.10 Myopia, unspecified eye; Z23 Encounter for immunization | CPT/HCPCS: 90471; 90715; 96127; 96160 ==